=== PATIENT | female | born 1990 | race Caucasian/White ===

== ENCOUNTER 2022-06-17 09:21 | Outpatient (CLI) | payer MEDICAID, SELFPAY | END 2022-06-17 09:22 | disposition home or self-care (01) | PROVIDERS: PCP Physician Assistant Medical; Visit Provider Physician Assistant Medical | DX: Z01.419 Encounter for gynecological examination (general) (routine) without abnormal findings (principal); F32.A Depression, unspecified; F41.9 Anxiety disorder, unspecified; F90.0 Attention-deficit hyperactivity disorder, predominantly inattentive type; Z13.6 Encounter for screening for cardiovascular disorders; Z13.29 Encounter for screening for other suspected endocrine disorder | CPT/HCPCS: 80053; 80061; 84443 ==

== ENCOUNTER 2023-02-25 15:06 | Outpatient (CLI) | payer MEDICAID, SELFPAY ==
--- NOTE | 2023-02-25 15:00 | CRLHL7_ITS ---
For Patients: As a result of the Century Cures Act, medical imaging exams and procedure reports are released immediately into your electronic medical record. You may view this report before your referring provider. If you have questions, please contact your health care provider. INDICATION: Malignant melanoma posterior right shoulder. Injection for sentinel lymph node scintigraphy. TECHNIQUE: The on-site staff obtained informed consent. The risks and benefits of the procedure were discussed with the patient. The patient agreed to proceed. Utilizing sterile technique, but no xylocaine, 1.66 mCi Tc-99m filtered Sulfur Colloid was injected within an intradermal location about the posterior right shoulder lesion. No immediate complications were documented. Subsequent imaging demonstrates a single focus of activity corresponding to a right axillary lymph node. This was marked on the overlying skin and the patient was sent to surgery. IMPRESSION: Technically successful injection for sentinel lymph node scintigraphy of a right shoulder lesion. A right axillary lymph node was identified and marked on the overlying skin. Dictated by Faustino Pinedo MD @ 02/26/2023 10:56:56 AM (Electronically Signed)
== END 2023-02-25 15:07 | disposition home or self-care (01) ==
LOC: NM 15:07
PROVIDERS: PCP Physician Assistant Medical; Visit Provider Surgery
DX: C43.9 Malignant melanoma of skin, unspecified (principal)
CPT/HCPCS: 78195; A9541

== ENCOUNTER 2023-02-26 06:18 | Day surgery (SDC) | payer MEDICAID, SELFPAY ==
[2023-02-26] VITALS (15 sets, daily range): BP systolic 122–143; BP diastolic 71–103; PULSE 63–645; RESP 14–20; TEMP 36.3–36.8; O2SAT 96–100; BMI 23.9
[2023-02-26 06:41] LABS: Ur HCG Qualitative* Negative (Negative)
[2023-02-26] MEDS: LACTATED RINGERS 1000 ML 1,000 ML 100 ML IV (06:50)
[2023-02-26] MEDS: SODIUM CHLORIDE 0.9 % (FLUSH) 10 ML SYRINGE IVF (06:53)
--- NOTE | 2023-02-26 07:27 | PM.GSPRC ---
Operative Note Date of procedure: 02/26/23 Pre-op diagnosis: 1. Malignant melanoma of the right shoulder, 1.00 mm in depth without ulceration Post-op diagnosis: Same Type of Procedure: 1. Wide local excision malignant melanoma of the right shoulder with 1 cm margins down to fascia 2. Right axillary sentinel lymph node biopsy Procedure Description: After discussing the risks and benefits of the procedure, the patient signed informed consent.? The operative site was marked and the patient was brought to the operating room and placed on the operating table in supine position.? Care was taken to pad the patient's pressure points.?? The patient was then intubated by anesthesia.?? Patient was then placed in the left lateral decubitus position using a sand bag. An axillary roll was placed. Care was taken to pad the patient's pressure points. It should be noted that yesterday afternoon the patient underwent lymphoscintigraphy. This identified that she had a sentinel node in the right axilla. 10 minutes prior to the incision, I injected 3 mL of Isosulfan blue dye in 4 quadrants around the lesion on the right shoulder. This was massaged for 3 minutes. The area was then prepped and draped sterilely. A time-out was then performed. I marked out 1 cm margins superiorly and inferiorly. The width of the incision then measured 3.5 cm. I marked out slightly over 9 cm in length, creating an ellipse. Using a skin knife I created the elliptical incision. Dissection was taken down to fascia using cautery. The specimen was then dissected free from the fascia and subcutaneous tissue using cautery. A marking stitch was placed at 3:00 o'clock or lateral. This was sent to pathology. Hemostasis was achieved with cautery. I then created skin flaps superiorly and inferiorly just above the fascia and the subcutaneous fat. I was able to reapproximate the skin edges. I then injected 0.5% Marcaine into the muscle and skin in area of the incision. Then using 2-0 Vicryl, I placed full-thickness sutures through the dermis and subcutaneous tissue starting at the wound edges. I was able to bring the wound edges together with slight tension. Several additional 3-0 Vicryl dermal stitches were then placed. The wound was then closed with 4-0 Monocryl in a running subcuticular fashion. I then placed 3-0 nylon vertical mattress sutures at the mid aspect of the incision where it was under slight tension. Glue was then applied to the lateral edges of the wound. Bacitracin was applied over the neural on stitches. A sterile dressing was applied. The patient was then placed supine. The beanbag was removed. The right axilla was then prepped and draped sterilely. A Neoprobe was then brought into the field and identified a signal in the axilla. Local anesthetic was injected into the skin and subcutaneous tissue. I created a skin incision and took dissection down through the subcutaneous fat and clavipectoral fascia using cautery. Placing the Neoprobe in the wound I was able to identify a signal. I then identified a small lymph node. This node was not blue. This was removed and measured 1100 ex vivo. The probe was placed back into the axilla and there continued to be a signal. An additional node just deep to the 1st node was carefully dissected out. Small clips were used to ligate some small bleeding vessels from the axillary fat. Once this was dissected free, it was removed and had a signal of 500 ex vivo. These were both sent as right axillary sentinel nodes for permanent section. There was no further signal in the axilla. There were no blue nodes and there were no other suspicious looking nodes. Hemostasis appeared excellent. Shruti was placed in the axilla. The wound was then closed with 3-0 Vicryl dermal and 4-0 Monocryl running subcuticular suture. Sterile dressings were then applied. ? The patient was then woken and transported to the recovery area in stable condition. ? The patient tolerated the procedure well. Findings: Two axillary sentinel lymph nodes identified Anesthesia: TRISTA Surgeon: Leida Jaquez MD Estimated blood loss (mL): 25 Additional Specimen Information: 1. Right shoulder melanoma excision, stitch at 3 o'clock. or lateral 2. Right axillary sentinel lymph nodes x2 Condition: stable Disposition: PACU Primary Cutaneous Melanoma Operation Performed with Curative Intent: Yes Original Breslow thickness of the lesion: Depth in mm Depth in MM: 1 Clinical margin width (measured from the edge of the lesion or the prior excision scar): 1 cm Depth of Excision: Full thickness skin/subcutaneous tissue down to fascia (melanoma)
[2023-02-26] MEDS: CEFAZOLIN 1 GM inj IVP (07:56)
[2023-02-26] MEDS: ISOSULFAN BLUE 5 ML VIAL INJECTION (08:00)
[2023-02-26] MEDS: BUPIVACAINE 0.25% 30 ML INJECTION (08:06)
--- NOTE | 2023-02-26 08:18 | W.ANESCHARGE ---
Anesthesia Charges Start Date/Time Anesthesia Start Date: 02/26/23 Anesthesia Start Time: 07:30 Stop Date/Time Anesthesia Stop Date: 02/26/23 Anesthesia Stop Time: 10:23
--- NOTE | 2023-02-26 10:15 | W.ANESCHARGE ---
Anesthesia Charges Start Date/Time Anesthesia Start Date: 02/26/23 Anesthesia Start Time: 07:30 Stop Date/Time Anesthesia Stop Date: 02/26/23 Anesthesia Stop Time: 10:23
[2023-02-26] MEDS: fentaNYL 100 MCG/2 ML inj 50 MCG IVP (10:44)
--- NOTE | 2023-02-26 11:04 | SUR.PHASEI ---
patient met discharge criteria per anesthesia
== END 2023-02-26 12:06 | disposition home or self-care (01) ==
LOC: OR 06:18
PROVIDERS: Anesthesiology; PCP Physician Assistant Medical; Visit Provider Surgery
PROC: (CPT 11606; principal; 2023-02-26 07:30)
PROC: (CPT 11606; 2023-02-26 07:30)
DX: C43.61 Malignant melanoma of right upper limb, including shoulder (principal); C77.3 Secondary and unspecified malignant neoplasm of axilla and upper limb lymph nodes
CPT/HCPCS: 11606; 17999; 38525; 01610; 81025; J0665; J0690; J1100; J1885; J2405; J2704; J2710; J3010; J7120

== ENCOUNTER 2023-07-19 12:39 | Outpatient (CLI) | payer MEDICAID, SELFPAY ==
--- NOTE | 2023-07-19 13:00 | MR_ITS ---
Patient: SULMA JAMISON Facility:?[facility] Patient ID:?[id number] Site Patient ID:?[id number]. Site :?[id number] Study:?MRI-Head WO/W DOTAREM 15ML-07/19/2023 2:10:03 PM Ordering Physician:DEL Final Report: INDICATION: Staging for melanoma. TECHNIQUE: Multiplanar multisequence MR imaging prior to and following intravenous contrast. COMPARISON: None. FINDINGS: The ventricles and sulci are within normal limits for patient age. No mass effect or midline shift. Few punctate FLAIR hyperintensities in the supratentorial white matter, nonspecific. No pathologic intracranial enhancement. No intracranial hemorrhage or pathologic extra-axial fluid collection. No diffusion restriction to suggest acute infarction. The major arterial flow voids of the skullbase are preserved. The globes are symmetric. Mild to moderate paranasal sinus mucosal thickening. The mastoid air cells are clear. IMPRESSION: No acute intracranial abnormality or evidence for intracranial metastatic disease. Dictated by Linus Lopez MD @ 07/20/2023 7:52:47 AM Signed by:?Linus Lopez MD @07/20/2023 7:52:47 AM (Electronic Signature)
== END 2023-07-19 12:40 | disposition home or self-care (01) ==
LOC: MRI 12:41
PROVIDERS: PCP Physician Assistant Medical; Visit Provider Internal Medicine Hematology & Oncology
DX: C43.9 Malignant melanoma of skin, unspecified (principal)
CPT/HCPCS: 70553; A9575

== ENCOUNTER 2023-08-09 15:43 | Emergency (ER) | payer MEDICAID, SELFPAY ==
[2023-08-09 15:48] VITALS: BP 145/96; PULSE 88; RESP 18; TEMP 36.5; O2SAT 99; BMI 23.5
--- NOTE | 2023-08-09 16:09 | ED.GENADULT ---
HPI - General Adult General Chief complaint: Eye Problems Stated complaint: Allergic reaction--eyes enflamed, lips swollen Time Seen by Provider: 08/09/23 15:52 History of Present Illness HPI narrative: This 32-year-old female comes in with persistent bilateral eye discomfort. She started some eyedrops that her daughter head because of purulent discharge. This was floxacillin ophthalmic solution. Her eyes became more irritated after this and she continues to have matting and crusting in her eyes. Yesterday she was seen in clinic and instructed to discontinue the floxacillin ophthalmic solution. She was prescribed olopatadine and states that she did not get any relief with this medication. This morning she did start tobramycin ophthalmic solution as directed. She comes in today because of bilateral eye discomfort and redness. She is otherwise in good health but does have a history of melanoma and is taking a immune suppressant. Related Data Home Medications ?Medication ?Instructions ?Recorded ?Confirmed etonogestrel 68 mg subdermal 1 implant subdermal ONCE 06/17/22 08/08/23 implant Opdivo IV 06/28/23 08/08/23 valacyclovir 1 gram tablet 2,000 mg PO Q12H PRN 07/19/23 08/08/23 lisinopril 10 mg tablet 10 mg PO QDAY 08/08/23 08/08/23 Previous Rx's ?Medication ?Instructions ?Recorded lisdexamfetamine 30 mg capsule 30 mg PO QAM #30 caps 06/24/23 (Vyvanse) olopatadine 0.1 % eye drops 1 drp ophthalmic (eye) BID 7 days 08/08/23 #5 mL tobramycin 0.3 % eye drops 1 drp ophthalmic (eye) QID 7 days 08/08/23 #5 mL ketorolac 0.4 % eye drops 1 drp ophthalmic (eye) QID #5 mL 08/09/23 Allergies Allergy/AdvReac Type Severity Reaction Status Date / Time No Known Drug Allergies Allergy Verified 08/08/23 11:57 Review of Systems Status of ROS: Reports: 10 or more systems reviewed and unremarkable except as noted in History and below Narrative: Constitutional: No fevers, no weight gain or loss. Eyes: No vision changes. Erythema with tearing and matting as described above. HENT: No congestion, no sore throat, no ear pain. Cardiovascular: No chest pain, no palpitations. Respiratory: No shortness of breath, no wheezes, no cough. Gastrointestinal: No abdominal pain, no vomiting, no diarrhea. Genitourinary: No dysuria, no hematuria. Musculoskeletal: Normal range of motion. Skin: No rashes, no pruritis. Neurological: No dizziness, weakness, sensory change, speech change. Endo/Heme/Allergies: No bruising or bleeding. No polydipsia. Pysch: no suicidality, no anxiety, no insomnia. All other systems reviewed and are negative. [facility] Medical History (Updated 08/09/23 @ 16:14 by Sundar Canela MD) Elevated blood pressure reading ?R03.0 - Elevated blood-pressure reading, without diagnosis of hypertension (ICD-10) History of gestational diabetes ?Z86.32 - Personal history of gestational diabetes (ICD-10) Surgical History (Updated 06/24/23 @ 09:35 by Jayjay Roberts PA-C) S/P lymph node biopsy ?Z98.890 - Other specified postprocedural states (ICD-10) History of ?Z98.891 - History of uterine scar from previous surgery (ICD-10) Social History (Updated 02/17/23 @ 10:19 by Leida Jaquez MD) Narrative: Vapes - approximately 2 cigarettes per day. Drinks 4 drinks per day. 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 Smoking Status: Current every day smoker Do you use any of these nicotine containing products: Vaping Products How often do you have a drink containing alcohol: 4 or more times a week How many standard drinks containing alcohol do you have on a typical day: 1 or 2 AUDIT-C Alcohol total score: 4 Non-prescribed substance use: denies use Caffeine: No Little interest or pleasure in doing things: several days Feeling down, depressed, or hopeless: not at all Are you using contraception or practicing any form of control: Yes Exam Narrative: Exam Narrative: Constitutional: Well-developed, well-nourished, no acute distress. HEENT: Normocephalic, atraumatic. Sclera are injected bilaterally. There is some increased tearing. She is reporting crusting and matting at times in her eyes. Neck: Normal range of motion. Nontender. Supple. Heart: Intact distal pulses. Lungs: No chest discomfort. No wheezes, rhonchi, or rales. Abdomen: Nontender. Back: Normal range of motion. Extremities: Normal range of motion. No injury. Skin: Intact. No rash. Warm. No erythema or pallor. Neurologic: No altered sensation. No weakness. Alert and oriented. Psychiatric: No suicidality. No anxiety or depression. No insomnia. Nursing notes and vitals signs are reviewed. Const: Vital Signs, click to edit/add: Vital Signs - 24 hr 08/09/23 15:48 Temperature 97.7 F Pulse Rate [Right Pulse Oximeter] 88 Respiratory Rate 18 Blood Pressure [Ri ght Upper Arm] 145/96 H Pulse Oximetry 99 Oxygen Delivery Me thod Room Air Course Vital Signs Vital signs: Initial Vital Signs Temperature 97.7 F 08/09/23 15:48 Temperature Source Temporal Artery Scan 08/09/23 15:48 Pulse Rate 88 08/09/23 15:48 Respiratory Rate 18 08/09/23 15:48 Blood Pressure 145/96 H 08/09/23 15:48 Blood Pressure Mean 112 H 08/09/23 15:48 Blood Pressure Position Sitting 08/09/23 15:48 Pulse Oximetry 99 08/09/23 15:48 Oxygen Delivery Method Room Air 08/09/23 15:48 Vital Signs Temperature 97.7 F 08/09/23 15:48 Pulse Rate 88 08/09/23 15:48 Respiratory Rate 18 08/09/23 15:48 Blood Pressure 145/96 H 08/09/23 15:48 Pulse Oximetry 99 08/09/23 15:48 Oxygen Delivery Method Room Air 08/09/23 15:48 Temperature 97.7 F 08/09/23 15:48 Pulse Rate 88 08/09/23 15:48 Respiratory Rate 18 08/09/23 15:48 Blood Pressure 145/96 H 08/09/23 15:48 Pulse Oximetry 99 08/09/23 15:48 Oxygen Delivery Method Room Air 08/09/23 15:48 Medical Decision Making MDM Narrative Medical decision making narrative: This patient is being treated for bilateral conjunctivitis with tobramycin. She seemed to have some reaction to previous medications. Tobramycin should be sufficient to treat any bacterial infection. She may be having some allergic reaction or persistent symptoms reacting to the infection itself. The patient received an intramuscular injection of dexamethasone 10 mg here. I did also prescribed ketorolac ophthalmic solution for additional symptomatic relief. Discharge Plan Discharge Clinical Impression: Bacterial conjunctivitis Patient Disposition: Home, Self-Care Condition: Stable Additional Instructions: Continue tobramycin as prescribed and use ketorolac also as needed for symptomatic relief. Follow up with MD return if worsening. Prescriptions: New ketorolac 0.4 % drops 1 drp ophthalmic (eye) QID Qty: 5 0RF No Action lisinopril 10 mg tablet 10 mg PO QDAY tobramycin 0.3 % drops 1 drp ophthalmic (eye) QID 7 Days Qty: 5 0RF olopatadine 0.1 % drops 1 drp ophthalmic (eye) BID 7 Days Qty: 5 0RF Rx Instructions: separate doses by at least 6-8 hours etonogestrel 68 mg implant 1 implant subdermal ONCE Rx Instructions: as a single dose valacyclovir 1 gram tablet 2,000 mg PO Q12H PRN Rx Instructions: 2 po twice daily for 1 day for onset of cold sores Opdivo IV lisdexamfetamine [Vyvanse] 30 mg capsule 30 mg PO QAM Qty: 30 0RF Follow Up/Referrals: Jayjay Roberts PA-C [Primary Care Provider] - Stand Alone Forms: [facility] Info Instructions
[2023-08-09] MEDS: dexAMETHasone 10 MG/ML inj IM (16:15)
[2023-08-09 16:32] VITALS: BP 145/96; PULSE 88; RESP 18; TEMP 36.5
== END 2023-08-09 16:32 | disposition home or self-care (01) ==
LOC: ED 16:22
PROVIDERS: Emergency Provider Emergency Medicine Emergency Medical Services; PCP Physician Assistant Medical
DX: H10.023 Other mucopurulent conjunctivitis, bilateral (principal)
CPT/HCPCS: 99283; 99284; J1100

== ENCOUNTER 2023-08-11 17:46 | Emergency (ER) | payer MEDICAID, SELFPAY ==
[2023-08-11 18:00] VITALS: BP 137/90; PULSE 86; RESP 18; TEMP 36.9; O2SAT 98; BMI 23.5
--- NOTE | 2023-08-11 18:13 | ED.GENADULT ---
HPI - General Adult General Chief complaint: Allergic Reaction Stated complaint: allergic reaction to meds for eye infection Time Seen by Provider: 08/11/23 18:13 History of Present Illness HPI narrative: here the other day for an allergic reaction, back for the same thing. pt's eyes are red. states lips are swollen, and throat is itchy . cancer pt. thinks she allergic to ktobramycin eye drops. and told to contiue using eye drops. was given antihistamine when she was here. 32-year-old woman presenting to the emergency department now with about 5 days of eye irritation. Was seen 3 days ago after a couple of days of using child's Floxin drops and told to use olopatadine and discontinue Floxin. She was then switched to tobramycin. Presented 2 days ago to this emergency department after no benefit from olopatadine. At that time was using tobramycin. She was given injection in this department of dexamethasone and she says she noticed near immediate improvement in his sense of pressure and fullness around her eyes. Was to continue with the tobramycin and given ketorolac. To feel like her lips might even be swollen. Throat is itchy. She is not having any sense of swollen throat or difficulty breathing. Has had cold sores in the past. Is asking for another dose of dexamethasone. Related Data Home Medications ?Medication ?Instructions ?Recorded ?Confirmed etonogestrel 68 mg subdermal 1 implant subdermal ONCE 06/17/22 08/16/23 implant Opdivo IV 06/28/23 08/16/23 valacyclovir 1 gram tablet 2,000 mg PO Q12H PRN 07/19/23 08/16/23 lisinopril 10 mg tablet 20 mg PO QDAY 08/16/23 08/16/23 Previous Rx's ?Medication ?Instructions ?Recorded prednisolone acetate 1 % eye 1 drp ophthalmic (eye) QID #5 mL 08/11/23 drops,suspension lisdexamfetamine 30 mg capsule 30 mg PO QAM #30 caps 08/31/23 (Vyvanse) lisdexamfetamine 30 mg capsule 30 mg PO QAM #30 caps 08/31/23 (Vyvanse) lisdexamfetamine 30 mg capsule 30 mg PO QAM #30 caps 08/31/23 (Vyvanse) Allergies Allergy/AdvReac Type Severity Reaction Status Date / Time tobramycin Allergy Severe Verified 08/16/23 11:54 Review of Systems Status of ROS: Reports: 6 or more systems reviewed and unremarkable except as noted in History and below [facility] Medical History Elevated blood pressure reading ?R03.0 - Elevated blood-pressure reading, without diagnosis of hypertension (ICD-10) History of gestational diabetes ?Z86.32 - Personal history of gestational diabetes (ICD-10) Surgical History S/P lymph node biopsy ?Z98.890 - Other specified postprocedural states (ICD-10) History of ?Z98.891 - History of uterine scar from previous surgery (ICD-10) Social History Narrative: Vapes - approximately 2 cigarettes per day. Drinks 4 drinks per day. 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 Smoking Status: Current every day smoker Do you use any of these nicotine containing products: Vaping Products How often do you have a drink containing alcohol: 4 or more times a week How many standard drinks containing alcohol do you have on a typical day: 1 or 2 AUDIT-C Alcohol total score: 4 Non-prescribed substance use: denies use Caffeine: No Little interest or pleasure in doing things: several days Feeling down, depressed, or hopeless: not at all Are you using contraception or practicing any form of control: Yes Exam Narrative: Exam Narrative: Pleasant. Appears stressed. Breathing easily. I do not appreciate significant swelling of the mucosal membranes. There is no stridor. Neck is supple without lymphadenopathy. Lungs appear to be clear. Mild erythema without significant calor and soft swelling periorbitally. Intense conjunctival injection with some clear drainage. She is not demonstrating significant photophobia but is little light sensitive. Skin is warm and dry otherwise without rash. Placed anesthetic drops. Fluorescein dye staining does not reveal any unusual uptake. No dendrite evidence. No evidence otherwise. Const: Vital Signs, click to edit/add: Vital Signs - 24 hr 08/11/23 18:00 Temperature 98.5 F Pulse Rate [Pulse Oximeter] 86 Respiratory Rate 18 Blood Pressure [Ri ght Upper Arm] 137/90 H Pulse Oximetry 98 Oxygen Delivery Me thod Room Air Documenting provider has reviewed patient's vital signs: yes Course Vital Signs Vital signs: Initial Vital Signs Temperature 98.5 F 08/11/23 18:00 Temperature Source Temporal Artery Scan 08/11/23 18:00 Pulse Rate 86 08/11/23 18:00 Respiratory Rate 18 08/11/23 18:00 Blood Pressure 137/90 H 08/11/23 18:00 Blood Pressure Mean 105 08/11/23 18:00 Blood Pressure Position Sitting 08/11/23 18:00 Pulse Oximetry 98 08/11/23 18:00 Oxygen Delivery Method Room Air 08/11/23 18:00 Vital Signs Temperature 98.5 F 08/11/23 18:00 Pulse Rate 86 08/11/23 18:00 Respiratory Rate 18 08/11/23 18:00 Blood Pressure 137/90 H 08/11/23 18:00 Pulse Oximetry 98 08/11/23 18:00 Oxygen Delivery Method Room Air 08/11/23 18:00 Temperature 98.5 F 08/11/23 18:00 Pulse Rate 86 08/11/23 18:00 Respiratory Rate 18 08/11/23 18:00 Blood Pressure 137/90 H 08/11/23 18:00 Pulse Oximetry 98 08/11/23 18:00 Oxygen Delivery Method Room Air 08/11/23 18:00 Medications Administered Medications: Discontinued Medications Generic Name Dose Route Start Last Admin Trade Name Freq PRN Reason Stop Dose Admin Dexamethasone 10 mg 08/11/23 19:42 08/11/23 19:54 Dexamethasone 10 Mg/Ml Inj IM 08/11/23 19:43 10 mg ONCE ONE Administration Medical Decision Making MDM Narrative Medical decision making narrative: I suspect what has happened here is a worsening of a viral conjunctivitis due to potential med reaction. Think it would be in Karla's best interest to discontinue/not use any of the previous drops. She is somewhat immunosuppressed and so I would have concerns about herpetic infection potentially. I do not see evidence of it otherwise here today. Probably would benefit from some steroid eyedrops but would want to get this cleared from optometry/ophthalmology 1st. I discussed that while I think this is of limited additional benefit, I can give another injection of dexamethasone as she is requesting. I did call to optometry/ophthalmology and have managed to arrange close follow-up as well. See patient discharge plan for further discussion. Medical Records Medical records reviewed: Yes I reviewed the patient's medical records Discharge Plan Discharge Clinical Impression: Conjunctivitis Patient Disposition: Home, Self-Care Condition: Stable Additional Instructions: Can place generic eye ointment or refresh p.m. drops as needed for lubrication/relief. Please fill the prednisone drops tonight if possible. Expect a call from [facility] in the morning for close follow-up with Dr. Cantu. Stop all other drops Prescriptions: New prednisolone acetate 1 % drops,suspension 1 drp ophthalmic (eye) QID Qty: 5 0RF No Action lisinopril 10 mg tablet 20 mg PO QDAY etonogestrel 68 mg implant 1 implant subdermal ONCE Rx Instructions: as a single dose valacyclovir 1 gram tablet 2,000 mg PO Q12H PRN Rx Instructions: 2 po twice daily for 1 day for onset of cold sores Opdivo IV lisdexamfetamine [Vyvanse] 30 mg capsule 30 mg PO QAM Qty: 30 0RF lisdexamfetamine [Vyvanse] 30 mg capsule 30 mg PO QAM Qty: 30 0RF lisdexamfetamine [Vyvanse] 30 mg capsule 30 mg PO QAM Qty: 30 0RF Follow Up/Referrals: Jayjay Roberts PA-C [Primary Care Provider] - Stand Alone Forms: [employer] Info Instructions
[2023-08-11] MEDS: dexAMETHasone 10 MG/ML inj IM (19:54)
== END 2023-08-11 20:08 | disposition home or self-care (01) ==
PROVIDERS: Emergency Provider Family Medicine; PCP Physician Assistant Medical
DX: H10.023 Other mucopurulent conjunctivitis, bilateral (principal)
CPT/HCPCS: 99283; 99284; A9270; J1100

== ENCOUNTER 2023-08-16 09:30 | Outpatient (RCR) | payer MEDICAID, SELFPAY ==
[2023-04-05 10:35] LABS: Basophils Absolute Auto 0.02 K/uL (0.00-0.30); Basophils Percent Auto 0.4 % (0.0-3.0); Eosinophils Absolute Auto 0.16 K/uL (0.00-0.50); Eosinophils Percent Auto 3.1 % (0.0-7.0); Hematocrit 41.5 % (33.0-51.0); Hemoglobin* 13.6 gm/dL (12.0-16.0); Immature Granulocytes Abs Auto 0.01 K/uL (0.00-0.30); Immature Granulocytes Pct Auto 0.2 %; Lymphocytes Absolute Auto 2.05 K/uL (0.90-2.90); Lymphocytes Percent Auto 39.2 % (20-44); Mean Corpuscular HGB Conc 33 gm/dL (32-36); Mean Corpuscular Hemoglobin 32 pg (26-34); Mean Corpuscular Volume 97 fL (80-100); Monocytes Percent Auto 8.2 % (0.0-11.0); Neutrophils Absolute Auto 2.56 K/uL (1.7-7.0); Neutrophils Percent Auto 48.9 % (42.0-72.0); Platelet Count* 279 K/uL (140-440); RDW Coefficient of Variation % 12.1 % (11.5-15.5); Red Blood Count 4.28 m/uL (4.00-5.20); White Blood Count* 5.23 K/uL (4.50-11.00)
[2023-04-05 10:37] LABS: Slide Review Reflex No
[2023-04-05 10:49] LABS: Chloride* 104 mmol/L (96-114)
[2023-04-05 10:50] LABS: Potassium* 4.3 mmol/L (3.6-5.1); Sodium* 137 mmol/L (135-149)
[2023-04-05 10:52] LABS: Alkaline Phosphatase* 79 U/L (40-150); Anion Gap 6 mEq/L (7-15); Aspartate Amino Transferase* 34 U/L (12-35); Bilirubin Total* 0.5 mg/dL (0.1-1.5); Blood Urea Nitrogen* 8 mg/dL (5-24); Carbon Dioxide* 27 mmol/L (20-32); Creatinine* 0.6 mg/dL (0.5-1.5); Est. Creatinine Clearance* 128.48; Estimated Glomerular Filt Rate 121 ml/min
[2023-04-05 10:53] LABS: Alanine Aminotransferase* 36 U/L (4-35); Calcium* 9.2 mg/dL (8.4-10.6); Glucose* 114 mg/dL (60-115); Lactate Dehydrogenase* 162 U/L (120-246)
--- NOTE | 2023-04-07 11:30 | URNOTE ---
Prior auth for Opdivo ([id number]) has been approved 480mg administered every 28 days for 7 doses. 04/08/2023-10/07/2023 Auth #[id number]
[2023-04-13 11:09] VITALS: BP 137/89; PULSE 73; RESP 16; TEMP 36.3; O2SAT 100
[2023-04-13 11:59] LABS: HCG Quantitative* < 2.39 mIU/mL
[2023-04-13] MEDS: SODIUM CHLORIDE 0.9 % (FLUSH) 10 ML SYRINGE IVF (12:30)
[2023-04-13] MEDS: 0.9 % SODIUM CHLORIDE 250 ml IV (12:30)
[2023-04-13 12:37] LABS: Thyroid Stimulating Hormone* 0.613 uIU/mL (0.270-4.20)
[2023-04-13] MEDS: NIVOLUMAB 480 MG, TUBING PRIMARY 1 EACH, In-line 0.2 micron filter set 1 EACH in 0.9 % ... 300 MG IVPB (12:49)
--- NOTE | 2023-04-13 14:16 | ONC.NURNOTE ---
PSDS = 5 discussed SS visit with next infusion- patient agreeable consult placed patient expresses concerns about her depression, anxiety which she states she manages with alcohol , marijuana and smoking
--- NOTE | 2023-04-13 14:18 | ONC.NURNOTE ---
teaching on new start optivo today with friend Danielle reviewed immunotherapy and some of the possible side effects, importance to call with any changes, such as rash, loose stools, cough, change in breathing, not limited to just these symptoms discussed self care at home, treatment schedule, reviewed contents of the binder for new treatments, managing an fever with ER visit questions addressed, consents signed also discussed smoking cessation- hand outs given with encouragement to start with a decrease the number of cigarettes/day and or number of times vaping/day- patient will try- and friend very supportive patient asked about alcohol- she drinks daily- and smoking marijuana- auto service writer discussed possible inflammations of liver and lung and would recommend that she decrease exposure from other potential irritants- patient agreeable to SS consult with next visit
--- NOTE | 2023-04-14 13:03 | ONC.NURNOTE ---
Called pt to see how she was doing after receiving 1st opdivo yesterday. Pt states she did have 2 watery, green stools last evening after infusion and slept most of the evening. Today, pt states she feels well, has had 1 more formed stool today. Encouraged pt to call [facility] if she has any questions or concerns.
--- NOTE | 2023-04-19 13:23 | ONC.NURNOTE ---
[facility] tani completed by patient and oncology staff and faxed in [phone]
--- NOTE | 2023-05-11 10:03 | ONC.NURNOTE ---
Patient missed her appointment yesterday. Left message for patient yesterday, and called and talked with patient today. She is unable to come in today, she will work with her workplace to see if able to come tomorrow. When patient calls back, she will need to have her SW appointment rescheduled as well.
[2023-05-12 10:26] LABS: Basophils Absolute Auto 0.06 K/uL (0.00-0.30); Eosinophils Absolute Auto 0.35 K/uL (0.00-0.50); Eosinophils Percent Auto 5.9 % (0.0-7.0); Hematocrit 40.7 % (33.0-51.0); Hemoglobin* 13.6 gm/dL (12.0-16.0); Immature Granulocytes Abs Auto 0.01 K/uL (0.00-0.30); Immature Granulocytes Pct Auto 0.2 %; Lymphocytes Absolute Auto 1.42 K/uL (0.90-2.90); Lymphocytes Percent Auto 23.9 % (20-44); Mean Corpuscular HGB Conc 33 gm/dL (32-36); Mean Corpuscular Hemoglobin 33 pg (26-34); Mean Corpuscular Volume 97 fL (80-100); Monocytes Percent Auto 7.9 % (0.0-11.0); Neutrophils Absolute Auto 3.64 K/uL (1.7-7.0); Neutrophils Percent Auto 61.1 % (42.0-72.0); Platelet Count* 292 K/uL (140-440); RDW Coefficient of Variation % 12.7 % (11.5-15.5); Red Blood Count 4.19 m/uL (4.00-5.20); White Blood Count* 5.95 K/uL (4.50-11.00)
[2023-05-12 10:29] VITALS: BP 141/87; RESP 18; TEMP 36.6; O2SAT 98
[2023-05-12 10:35] LABS: Slide Review Reflex No
[2023-05-12 10:42] LABS: Albumin* 4.1 g/dL (3.3-5.0); Chloride* 106 mmol/L (96-114)
[2023-05-12 10:43] LABS: Sodium* 137 mmol/L (135-149)
[2023-05-12 10:45] LABS: Anion Gap 10 mEq/L (7-15); Carbon Dioxide* 21 mmol/L (20-32); Creatinine* 0.6 mg/dL (0.5-1.5); Est. Creatinine Clearance* 128.48; Estimated Glomerular Filt Rate 121 ml/min
[2023-05-12 10:46] LABS: Alanine Aminotransferase* 30 U/L (4-35); Alkaline Phosphatase* 90 U/L (40-150); Aspartate Amino Transferase* 47 U/L (12-35); Bilirubin Total* 0.5 mg/dL (0.1-1.5); Blood Urea Nitrogen* 10 mg/dL (5-24); Calcium* 8.9 mg/dL (8.4-10.6); Glucose* 187 mg/dL (60-115); Total Protein* 7.3 g/dL (6.0-8.3)
--- NOTE | 2023-05-12 10:54 | PC.SOCIAL ---
Received social work referral. Met with pt at [facility] department. Introduced social work and discussed pt's current situation. 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 Discussed that social work can assist with resources or problem solving at any time as social work is part of the [facility] team. Provided pt with contact information to social work. Social work will follow up as needed.
[2023-05-12 11:48] LABS: Thyroid Stimulating Hormone* 0.319 uIU/mL (0.270-4.20)
[2023-05-12] MEDS: NIVOLUMAB 480 MG, TUBING PRIMARY 1 EACH, In-line 0.2 micron filter set 1 EACH in 0.9 % ... 300 MG IVPB (12:16)
[2023-05-12] MEDS: SODIUM CHLORIDE 0.9 % (FLUSH) 10 ML SYRINGE IVF (12:17)
[2023-05-12] MEDS: 0.9 % SODIUM CHLORIDE 250 ml IV (12:17)
--- NOTE | 2023-06-14 14:37 | ONC.NURNOTE ---
Pt did not show up for appt with Quita Mercado PA-C today. Trenching Machine Operator called pt and she stated her car won't start and she is unable to come in today. Pt then scheduled for Wednesday06/16/23, pt later called stated she is unable to come in due to her work schedule. Pt rescheduled for 06/21/23 to see Quita Mercado PA-C and yo.
[2023-06-21 10:16] LABS: Basophils Absolute Auto 0.06 K/uL (0.00-0.30); Basophils Percent Auto 1.1 % (0.0-3.0); Eosinophils Percent Auto 8.3 % (0.0-7.0); Hematocrit 45.2 % (33.0-51.0); Hemoglobin* 14.8 gm/dL (12.0-16.0); Immature Granulocytes Abs Auto 0.01 K/uL (0.00-0.30); Immature Granulocytes Pct Auto 0.2 %; Lymphocytes Absolute Auto 1.82 K/uL (0.90-2.90); Mean Corpuscular HGB Conc 33 gm/dL (32-36); Mean Corpuscular Hemoglobin 33 pg (26-34); Mean Corpuscular Volume 99 fL (80-100); Monocytes Percent Auto 7.9 % (0.0-11.0); Neutrophils Absolute Auto 2.88 K/uL (1.7-7.0); Neutrophils Percent Auto 50.5 % (42.0-72.0); Platelet Count* 318 K/uL (140-440); RDW Coefficient of Variation % 12.9 % (11.5-15.5); Red Blood Count 4.56 m/uL (4.00-5.20); White Blood Count* 5.69 K/uL (4.50-11.00)
[2023-06-21 10:19] LABS: Slide Review Reflex No
[2023-06-21 10:29] LABS: Albumin* 4.6 g/dL (3.3-5.0)
[2023-06-21 10:30] LABS: Chloride* 104 mmol/L (96-114); Potassium* 4.3 mmol/L (3.6-5.1); Sodium* 136 mmol/L (135-149)
[2023-06-21 10:32] LABS: Anion Gap 5 mEq/L (7-15); Carbon Dioxide* 27 mmol/L (20-32); Creatinine* 0.7 mg/dL (0.5-1.5); Est. Creatinine Clearance* 110.12; Estimated Glomerular Filt Rate 116 ml/min
[2023-06-21 10:33] LABS: Alanine Aminotransferase* 41 U/L (4-35); Alkaline Phosphatase* 91 U/L (40-150); Aspartate Amino Transferase* 67 U/L (12-35); Blood Urea Nitrogen* 13 mg/dL (5-24); Calcium* 9.4 mg/dL (8.4-10.6); Glucose* 82 mg/dL (60-115)
[2023-06-21 11:28] LABS: Thyroid Stimulating Hormone* 0.539 uIU/mL (0.270-4.20)
[2023-06-21] MEDS: SODIUM CHLORIDE 0.9 % (FLUSH) 10 ML SYRINGE IVF (12:17)
[2023-06-21] MEDS: 0.9 % SODIUM CHLORIDE 250 ml IV (12:17)
[2023-06-21] MEDS: NIVOLUMAB 480 MG, TUBING PRIMARY 1 EACH, In-line 0.2 micron filter set 1 EACH in 0.9 % ... 148 MG IVPB (12:17)
[2023-06-21 12:39] LABS: HCG Quantitative* < 2.39 mIU/mL
--- NOTE | 2023-06-21 13:11 | ONC.NURNOTE ---
Pt reports her BP has been running high at home 170's-190's/110's. She is on Lisinopril 10 mg/day prescribed by KALI Bryson, PCP and reported she is taking 20 mg/day. Her BP today 130's/80's. She reports her stress level is high, with S/o also undergoing treatment for cancer. Pt saw Quita Mercado PA-C. Urged pt to be seen by PCP to address BP. Pt also has not scheduled a Brain MRI ordered 04/2023. Transmission And Protection Engineer scheduled appts for and reviewed calendar with pt; Wednesday's work best with pt's schedule: 06/23 Derm f/u with Dr. Tubbs 06/27 BP f/u with Jayjay Roberts PA-C 07/04 Brain MRI 07/18 RTC Labs/Quita/#4 Nivolumab
[2023-07-19 09:51] LABS: Basophils Absolute Auto 0.08 K/uL (0.00-0.30); Basophils Percent Auto 1.5 % (0.0-3.0); Eosinophils Percent Auto 10.8 % (0.0-7.0); Hematocrit 41.7 % (33.0-51.0); Immature Granulocytes Abs Auto 0.02 K/uL (0.00-0.30); Immature Granulocytes Pct Auto 0.4 %; Lymphocytes Percent Auto 35.8 % (20-44); Mean Corpuscular HGB Conc 34 gm/dL (32-36); Mean Corpuscular Hemoglobin 33 pg (26-34); Mean Corpuscular Volume 98 fL (80-100); Monocytes Percent Auto 8.7 % (0.0-11.0); Neutrophils Absolute Auto 2.27 K/uL (1.7-7.0); Neutrophils Percent Auto 42.8 % (42.0-72.0); Platelet Count* 293 K/uL (140-440); RDW Coefficient of Variation % 12.4 % (11.5-15.5); Red Blood Count 4.27 m/uL (4.00-5.20)
[2023-07-19 09:52] LABS: Slide Review Reflex No
[2023-07-19 10:09] LABS: Albumin* 4.3 g/dL (3.3-5.0); Chloride* 105 mmol/L (96-114); Sodium* 135 mmol/L (135-149)
[2023-07-19 10:12] LABS: Alanine Aminotransferase* 33 U/L (4-35); Alkaline Phosphatase* 73 U/L (40-150); Anion Gap 5 mEq/L (7-15); Aspartate Amino Transferase* 44 U/L (12-35); Bilirubin Total* 0.9 mg/dL (0.1-1.5); Blood Urea Nitrogen* 14 mg/dL (5-24); Carbon Dioxide* 25 mmol/L (20-32); Creatinine* 0.7 mg/dL (0.5-1.5); Est. Creatinine Clearance* 110.12; Estimated Glomerular Filt Rate 116 ml/min; Glucose* 99 mg/dL (60-115); Total Protein* 7.4 g/dL (6.0-8.3)
[2023-07-19 10:13] LABS: Calcium* 8.7 mg/dL (8.4-10.6)
[2023-07-19 10:56] LABS: HCG Quantitative* < 2.39 mIU/mL
[2023-07-19 11:03] LABS: Thyroid Stimulating Hormone* 0.312 uIU/mL (0.270-4.20)
[2023-07-19] MEDS: NIVOLUMAB 480 MG, TUBING PRIMARY 1 EACH, In-line 0.2 micron filter set 1 EACH in 0.9 % ... 346 MG IVPB (11:55)
[2023-07-19] MEDS: 0.9 % SODIUM CHLORIDE 250 ml IV (11:58)
[2023-07-19] MEDS: SODIUM CHLORIDE 0.9 % (FLUSH) 10 ML SYRINGE IVF (11:58)
[2023-08-16 09:59] LABS: Eosinophils Percent Auto 7.3 % (0.0-7.0); Hematocrit 44.1 % (33.0-51.0); Hemoglobin* 14.5 gm/dL (12.0-16.0); Lymphocytes Percent Auto 25.3 % (20-44); Mean Corpuscular HGB Conc 33 gm/dL (32-36); Mean Corpuscular Hemoglobin 33 pg (26-34); Mean Corpuscular Volume 99 fL (80-100); Neutrophils Percent Auto 60.1 % (42.0-72.0); Platelet Count* 345 K/uL (140-440); RDW Coefficient of Variation % 12.1 % (11.5-15.5); Red Blood Count 4.44 m/uL (4.00-5.20); White Blood Count* 9.82 K/uL (4.50-11.00)
[2023-08-16 10:00] LABS: Basophils Absolute Auto 0.03 K/uL (0.00-0.30); Basophils Percent Auto 0.3 % (0.0-3.0); Lymphocytes Absolute Auto 2.48 K/uL (0.90-2.90)
[2023-08-16 10:07] LABS: Slide Review Reflex No
[2023-08-16 10:11] LABS: Albumin* 4.6 g/dL (3.3-5.0); Chloride* 102 mmol/L (96-114)
[2023-08-16 10:12] LABS: Potassium* 4.2 mmol/L (3.6-5.1); Sodium* 134 mmol/L (135-149)
[2023-08-16 10:14] LABS: Anion Gap 7 mEq/L (7-15); Bilirubin Total* 0.9 mg/dL (0.1-1.5); Carbon Dioxide* 25 mmol/L (20-32); Creatinine* 0.7 mg/dL (0.5-1.5); Est. Creatinine Clearance* 110.12; Estimated Glomerular Filt Rate 116 ml/min
[2023-08-16 10:15] LABS: Alanine Aminotransferase* 40 U/L (4-35); Alkaline Phosphatase* 73 U/L (40-150); Aspartate Amino Transferase* 32 U/L (12-35); Blood Urea Nitrogen* 13 mg/dL (5-24); Calcium* 8.8 mg/dL (8.4-10.6); Glucose* 120 mg/dL (60-115); Total Protein* 7.3 g/dL (6.0-8.3)
[2023-08-16 11:01] LABS: HCG Quantitative* < 2.39 mIU/mL; Thyroid Stimulating Hormone* 0.759 uIU/mL (0.270-4.20)
[2023-08-16] MEDS: NIVOLUMAB 480 MG, TUBING PRIMARY 1 EACH, In-line 0.2 micron filter set 1 EACH in 0.9 % ... 296 MG IVPB (11:50)
[2023-08-16] MEDS: SODIUM CHLORIDE 0.9 % (FLUSH) 10 ML SYRINGE IVF (11:52)
[2023-08-16] MEDS: 0.9 % SODIUM CHLORIDE 250 ml IV (11:52)
== END 2023-10-02 23:59 | disposition home or self-care (01) ==
LOC: CCIC 09:30
PROVIDERS: Clinical Nurse Specialist; Internal Medicine Hematology & Oncology; Surgery; PCP Physician Assistant Medical; Referring Provider Physician Assistant Medical; Visit Provider Physician Assistant
DX: C43.61 Malignant melanoma of right upper limb, including shoulder (principal); Z51.12 Encounter for antineoplastic immunotherapy; I10 Essential (primary) hypertension; B00.1 Herpesviral vesicular dermatitis; F98.8 Other specified behavioral and emotional disorders with onset usually occurring in childhood and adolescence
CPT/HCPCS: 36415; 80053; 81445; 83615; 84443; 84702; 84703; 85025; 96413; 99202; 99205; 99211; 99214; G0463; J7050; J9299

== ENCOUNTER 2024-01-26 09:31 | Outpatient (CLI) | payer MEDICAID, SELFPAY | END 2024-01-26 09:32 | disposition home or self-care (01) | LOC: FRMREF 09:31 | PROVIDERS: PCP Physician Assistant Medical; Visit Provider Physician Assistant Medical | DX: Z00.00 Encounter for general adult medical examination without abnormal findings (principal); I10 Essential (primary) hypertension; Z13.6 Encounter for screening for cardiovascular disorders | CPT/HCPCS: 80061 ==

== ENCOUNTER 2024-08-10 15:25 | Outpatient (CLI) | payer MEDICAID, SELFPAY | END 2024-08-10 15:26 | disposition home or self-care (01) | PROVIDERS: PCP Physician Assistant Medical; Visit Provider Physician Assistant Medical | DX: I10 Essential (primary) hypertension (principal); F98.8 Other specified behavioral and emotional disorders with onset usually occurring in childhood and adolescence; R53.83 Other fatigue; G25.81 Restless legs syndrome | CPT/HCPCS: 80053; 80061; 82306; 82607; 82728; 84443 ==